=== PATIENT | female | born 1970 | race Caucasian/White ===

== ENCOUNTER 2017-12-07 17:32 | Emergency (ER) | payer OTHER ==
[~2017-12-07] VITALS: Ht 157.5 cm; Wt 75.0 kg
[~2017-12-07 17:32] MED LIST: AMOX500C2 PO; NORCO10T PO
[2017-12-07] MEDS ORDERED: dexamethasone sod phosphate 10mg/ml inj IV STA (17:50)
[2017-12-07] MEDS ORDERED: clindamycin-Cleocin 900mg/D5W 50 ML IV ONE (17:50)
[2017-12-07] MEDS ORDERED: normal saline 1000ML IV soln IVB ONE (17:50)
[2017-12-07] MEDS ORDERED: iohexol 300mg/ml 100ml inj. ONE (17:58)
[2017-12-07] MEDS ORDERED: aspirin 81mg tab.chew PO ONE (18:30)
[2017-12-07] MEDS ORDERED: ondansetron/PF 4mg/2ml inj IV ONE (18:50)
[2017-12-07] MEDS ORDERED: morphine 4 MG/ML inj SYRINge IV ONE (18:50)
[2017-12-07 19:36] LABS: BASOPHILS % (AUTO) 0.1 % (0-1); EOSINOPHILS # (AUTO) 0.1 X10'3 (0-0.9); EOSINOPHILS % (AUTO) 0.7 % (0-6); HEMATOCRIT 42.4 % (35.0-45.0); HEMOGLOBIN 14.5 g/dl (12.0-16.0); LYMPHOCYTES # (AUTO) 1.3 X10'3 (1.1-4.8); LYMPHOCYTES % (AUTO) 9.2 % (21-51); MEAN CORPUSCULAR HEMOGLOBIN 31.3 PG (27.0-31.0); MEAN CORPUSCULAR HGB CONC 34.3 % (33.0-36.5); MEAN CORPUSCULAR VOLUME 91.2 FL (78-98); MEAN PLATELET VOLUME 9.6 FL (7.4-10.4); MONOCYTES # (AUTO) 0.6 X10'3 (0-0.9); MONOCYTES % (AUTO) 4.1 % (2-12); NEUTROPHILS % (AUTO) 85.9 % (42-75); PLATELET COUNT 233 X10'3 (140-440); RED BLOOD COUNT 4.65 X10'6 (4.20-5.60); RED CELL DISTRIBUTION WIDTH 13.7 % (11.5-14.5)
[2017-12-07 19:57] LABS: ALANINE AMINOTRANSFERASE 13 U/L (12-78); ALBUMIN 3.2 G/DL (3.4-5.0); ALBUMIN/GLOBULIN RATIO 0.9 (1.1-1.5); ALKALINE PHOSPHATASE 73 IU/L (46-116); ANION GAP 6 (8-16); ASPARTATE AMINO TRANSFERASE 9 U/L (10-37); BILIRUBIN,TOTAL 0.4 MG/DL (0.1-1.0); BLOOD UREA NITROGEN 8 MG/DL (7-18); CALCIUM 8.4 MG/DL (8.5-10.1); CHLORIDE 103 MMOL/L (99-107); GLUCOSE 111 MG/DL (70-104); MAGNESIUM 1.8 MG/DL (1.5-2.4); POTASSIUM 3.9 MMOL/L (3.5-5.1); SODIUM 136 MMOL/L (135-145); TOTAL CARBON DIOXIDE 26.7 MMOL/L (24-32); TOTAL PROTEIN 6.9 G/DL (6.4-8.2); eGFR 76 ML/MIN
[2017-12-07 20:47] VITALS: BP 152/96
== END 2017-12-07 21:28 | disposition home or self-care (01) ==
LOC: ER 17:33
DX: S02.5XXA Fracture of tooth (traumatic), initial encounter for closed fracture (principal); R06.03 Acute respiratory distress; K04.7 Periapical abscess without sinus; R07.9 Chest pain, unspecified; G43.909 Migraine, unspecified, not intractable, without status migrainosus; E11.9 Type 2 diabetes mellitus without complications; Z79.899 Other long term (current) drug therapy; Z79.2 Long term (current) use of antibiotics; X58.XXXA Exposure to other specified factors, initial encounter; Y93.89 Activity, other specified; Y92.89 Other specified places as the place of occurrence of the external cause; Y99.8 Other external cause status
CPT/HCPCS: 36415; 70491; 80053; 83735; 84484; 85025; 93005; 96365; 96375; 99285; J1100; J2270; J2405; J3490; J7030; Q9967

== ENCOUNTER 2017-12-11 23:42 | Emergency (ER) | payer OTHER ==
[~2017-12-11] VITALS: Ht 157.5 cm; Wt 77.2 kg
[2017-12-12 00:04] VITALS: BP 186/126
== END 2017-12-12 02:06 | disposition left against medical advice (07) ==
LOC: ER 23:43
DX: R21 Rash and other nonspecific skin eruption (principal); Z53.21 Procedure and treatment not carried out due to patient leaving prior to being seen by health care provider

== ENCOUNTER 2019-07-18 16:34 | Inpatient (IN) | payer OTHER ==
[~2019-07-18] VITALS: Ht 154.9 cm; Wt 83.1 kg
[~2019-07-18 16:34] MED LIST changes: -AMOX500C2 PO
[2019-07-18 17:47] LABS: BASOPHILS # (AUTO) 0.1 X10'3 (0-0.2); BASOPHILS % (AUTO) 0.7 % (0-1); EOSINOPHILS # (AUTO) 0.4 X10'3 (0-0.9); EOSINOPHILS % (AUTO) 4.7 % (0-6); HEMOGLOBIN 15.1 g/dl (12.0-16.0); LYMPHOCYTES # (AUTO) 2.6 X10'3 (1.1-4.8); LYMPHOCYTES % (AUTO) 29.3 % (21-51); MEAN CORPUSCULAR HEMOGLOBIN 31.1 PG (27.0-31.0); MEAN CORPUSCULAR HGB CONC 34.3 g/dL (33.0-36.5); MEAN CORPUSCULAR VOLUME 90.6 FL (78-98); MEAN PLATELET VOLUME 9.8 FL (7.4-10.4); MONOCYTES # (AUTO) 0.7 X10'3 (0-0.9); MONOCYTES % (AUTO) 7.3 % (2-12); NEUTROPHILS # (AUTO) 5.2 X10'3 (1.8-7.7); PLATELET COUNT 287 X10'3 (140-440); RED BLOOD COUNT 4.86 X10'6 (4.20-5.60); WHITE BLOOD COUNT 8.9 X10'3 (4.5-11.0)
[2019-07-18 18:06] LABS: ALANINE AMINOTRANSFERASE 27 U/L (12-78); ALBUMIN 3.3 G/DL (3.4-5.0); ALBUMIN/GLOBULIN RATIO 0.9 (1.1-1.5); ALKALINE PHOSPHATASE 83 IU/L (46-116); ANION GAP 5 (8-16); ASPARTATE AMINO TRANSFERASE 19 U/L (10-37); BILIRUBIN,TOTAL 0.1 MG/DL (0.1-1.0); BLOOD UREA NITROGEN 15 MG/DL (7-18); CALCIUM 8.4 MG/DL (8.5-10.1); CHLORIDE 108 MMOL/L (99-107); CREATININE 0.75 MG/DL (0.40-0.90); GLUCOSE 97 MG/DL (70-104); SODIUM 143 MMOL/L (135-145); TOTAL CARBON DIOXIDE 29.9 MMOL/L (24-32); TOTAL PROTEIN 6.9 G/DL (6.4-8.2); eGFR 81 ML/MIN
[2019-07-18] MEDS ORDERED: normal saline 1000ml 1,000 ML IV ONE (18:17)
[2019-07-18] MEDS ORDERED: normal saline 1000ML IV soln IVB ONE (18:20)
[2019-07-18] MEDS ORDERED: nitroGLYCERIN 0.4mg/hour patch TD ONE (18:20)
[2019-07-18] MEDS ORDERED: iohexol 350MG/ML 100ml bottle IV ONE (18:25)
[2019-07-18 18:52] LABS: MAGNESIUM 1.9 MG/DL (1.5-2.4)
--- NOTE | 2019-07-18 19:05 | NUR ---
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
[2019-07-18] MEDS ORDERED: ondansetron/PF 4mg/2ml inj IV ONE (19:20)
[2019-07-18] MEDS ORDERED: NO HOME MEDS (19:49)
[2019-07-18 19:52] LABS: PARTIAL THROMBOPLASTIN TIME 27 SECONDS (22-32)
[2019-07-18] MEDS ORDERED: acetaminophen 325mg tablet PO ONE (21:15)
[2019-07-18] MEDS ORDERED: acetaminophen 325mg tablet PO PRN (21:45)
[2019-07-18] MEDS ORDERED: magnesium hydroxide 30ml (MOM) UD suspension PO PRN (21:45)
[2019-07-18] MEDS ORDERED: morphine 2 MG/ML inj. syringe IV PRN ×2 (21:45)
[2019-07-18] MEDS ORDERED: mag hydrox/Alum hydrox/simeth 30ml oral suspension PO PRN (21:45)
[2019-07-18] MEDS ORDERED: ondansetron/PF 4mg/2ml inj IV PRN (21:45)
[2019-07-18] MEDS ORDERED: metoprolol tartrate 1mg/ml inj IV PRN (21:50)
[2019-07-18] MEDS ORDERED: aminophylline 250mg/10ml inj. IV PRN (21:50)
[2019-07-18] MEDS ORDERED: lisinopril 5mg tablet PO ONE (21:50)
[2019-07-18] MEDS ORDERED: nitroGLYCERIN 0.4mg SUBLingual tab SL PRN (21:50)
[2019-07-18] MEDS ORDERED: regadenoson 0.4mg/5ml syringe IV PRN (21:50)
[2019-07-18] MEDS ORDERED: metoprolol tartrate 50mg tablet PO ONE (21:50)
[2019-07-19 02:00] VITALS: BP 145/84
--- NOTE | 2019-07-19 03:13 | NUR ---
Called Dr. Renee regarding patient's having generalized rash. He ordered Benadryl 25mg PO once. No other orders were given at this time.
[2019-07-19] MEDS ORDERED: diphenhydrAMINE 25mg capsule PO ONE (03:15)
[2019-07-19 06:00] VITALS: BP 131/85
--- NOTE | 2019-07-19 06:05 | NUR ---
Patient in room MED 316. I have received report from DEBORAH Foster and had the opportunity to ask questions and assume patient care.
[2019-07-19 06:19] LABS: BASOPHILS % (AUTO) 0.3 % (0-1); EOSINOPHILS # (AUTO) 0.5 X10'3 (0-0.9); EOSINOPHILS % (AUTO) 3.5 % (0-6); HEMATOCRIT 47.2 % (35.0-45.0); HEMOGLOBIN 15.9 g/dl (12.0-16.0); LYMPHOCYTES # (AUTO) 1.4 X10'3 (1.1-4.8); LYMPHOCYTES % (AUTO) 10.5 % (21-51); MEAN CORPUSCULAR HEMOGLOBIN 30.6 PG (27.0-31.0); MEAN CORPUSCULAR HGB CONC 33.7 g/dL (33.0-36.5); MEAN CORPUSCULAR VOLUME 90.8 FL (78-98); MONOCYTES # (AUTO) 0.5 X10'3 (0-0.9); MONOCYTES % (AUTO) 4.1 % (2-12); NEUTROPHILS # (AUTO) 10.8 X10'3 (1.8-7.7); NEUTROPHILS % (AUTO) 81.6 % (42-75); PLATELET COUNT 275 X10'3 (140-440); WHITE BLOOD COUNT 13.2 X10'3 (4.5-11.0)
[2019-07-19 06:51] LABS: ALANINE AMINOTRANSFERASE 26 U/L (12-78); ALBUMIN/GLOBULIN RATIO 0.9 (1.1-1.5); ALKALINE PHOSPHATASE 69 IU/L (46-116); ANION GAP 9 (8-16); ASPARTATE AMINO TRANSFERASE 17 U/L (10-37); BILIRUBIN,TOTAL 0.3 MG/DL (0.1-1.0); BLOOD UREA NITROGEN 14 MG/DL (7-18); BUN/CREATININE RATIO 16.7 (6.6-38.0); CALCIUM 8.2 MG/DL (8.5-10.1); CHLORIDE 108 MMOL/L (99-107); CREATININE 0.84 MG/DL (0.40-0.90); GLUCOSE 96 MG/DL (70-104); POTASSIUM 3.9 MMOL/L (3.5-5.1); SODIUM 141 MMOL/L (135-145); TOTAL CARBON DIOXIDE 23.7 MMOL/L (24-32); TOTAL PROTEIN 6.3 G/DL (6.4-8.2); eGFR 71 ML/MIN
[2019-07-19 06:58] LABS: CHOL/HDL RATIO 5.4 (0.00-4.99); CHOLESTEROL 207 MG/DL (0-200); HDL CHOLESTEROL 38 MG/DL (35-60); LDL CHOLESTEROL 135 MG/DL (50-100); TRIGLYCERIDES 190 MG/DL (20-135)
[2019-07-19] MEDS: heparin, porcine 5000 units/ml vial SQ SCH ×2 (08:56→21:34)
[2019-07-19] MEDS: aspirin 81mg tablet.DR PO SCH (08:56)
[2019-07-19 11:00] VITALS: BP 119/77
--- NOTE | 2019-07-19 13:49 | NUR ---
Patient in room 316 on [facility] has orders for ECHO, Just FYI. Thank you, Camilla Jordan. ESSENTIA HEALTHE [id number]
[2019-07-19] MEDS ORDERED: methylPREDNISolone sod succ 125mg/2ml vial IV ONE (14:15)
[2019-07-19] MEDS: nicotine 14mg patch - 24hr TD SCH (14:36)
[2019-07-19] MEDS: diphenhydrAMINE 50 mg/ml inj IV PRN (14:37)
[2019-07-19 15:00] VITALS: BP 121/71
--- NOTE | 2019-07-19 17:54 | NUR ---
DR. WILSON PAGED: PAGER ID: [phone] MESSAGE: 316: RAY - C/O CP AND INCREASING HEAVINESS, EKG DONE, CHANGES NOTED, X2 NITRO GIVEN BEATRIZ [id number]
[2019-07-19 18:00] VITALS: BP 135/95
--- NOTE | 2019-07-19 18:00 | NUR ---
Patient in room MED 316. I have received report from BEATRIZ CABRERA and had the opportunity to ask questions and assume patient care.
--- NOTE | 2019-07-19 18:05 | NUR ---
Problems reprioritized. Patient report given, questions answered & plan of care reviewed with DEBORAH Montes De Oca.
[2019-07-19] MEDS ORDERED: mag hydrox/Alum hydrox/simeth 30ml oral suspension PO PRN (18:15)
[2019-07-19 22:00] VITALS: BP 120/64
[2019-07-20] VITALS (19 sets, daily range): BP systolic 127–163; BP diastolic 72–98
[2019-07-20 05:23] LABS: BASOPHILS % (AUTO) 0.2 % (0-1); EOSINOPHILS % (AUTO) 0 % (0-6); HEMATOCRIT 43.2 % (35.0-45.0); HEMOGLOBIN 14.7 g/dl (12.0-16.0); LYMPHOCYTES % (AUTO) 6.7 % (21-51); MONOCYTES # (AUTO) 0.2 X10'3 (0-0.9); MONOCYTES % (AUTO) 1.2 % (2-12); NEUTROPHILS # (AUTO) 13.4 X10'3 (1.8-7.7); NEUTROPHILS % (AUTO) 91.9 % (42-75); PLATELET COUNT 298 X10'3 (140-440); RED BLOOD COUNT 4.75 X10'6 (4.20-5.60); RED CELL DISTRIBUTION WIDTH 13.9 % (11.5-14.5); WHITE BLOOD COUNT 14.6 X10'3 (4.5-11.0)
--- NOTE | 2019-07-20 06:04 | NUR ---
Problems reprioritized. Patient report given, questions answered & plan of care reviewed with FRANDY CABRERA.
[2019-07-20 06:42] LABS: ALANINE AMINOTRANSFERASE 23 U/L (12-78); ALBUMIN 3.1 G/DL (3.4-5.0); ALBUMIN/GLOBULIN RATIO 0.9 (1.1-1.5); ALKALINE PHOSPHATASE 68 IU/L (46-116); ANION GAP 8 (8-16); ASPARTATE AMINO TRANSFERASE 13 U/L (10-37); BILIRUBIN,TOTAL 0.2 MG/DL (0.1-1.0); BLOOD UREA NITROGEN 15 MG/DL (7-18); BUN/CREATININE RATIO 17.4 (6.6-38.0); CALCIUM 8.8 MG/DL (8.5-10.1); CHLORIDE 106 MMOL/L (99-107); CREATININE 0.86 MG/DL (0.40-0.90); GLUCOSE 141 MG/DL (70-104); POTASSIUM 4.1 MMOL/L (3.5-5.1); SODIUM 140 MMOL/L (135-145); TOTAL CARBON DIOXIDE 26.2 MMOL/L (24-32); TOTAL PROTEIN 6.7 G/DL (6.4-8.2); eGFR 70 ML/MIN
[2019-07-20] MEDS ORDERED: predniSONE 20 mg tablet PO SCH (08:00)
[2019-07-20] MEDS: aspirin 81mg tablet.DR PO SCH (08:14)
[2019-07-20] MEDS: heparin, porcine 5000 units/ml vial SQ SCH ×2 (08:17→20:10)
[2019-07-20] MEDS: nicotine 14mg patch - 24hr TD SCH (08:18)
[2019-07-20] MEDS: atorvastatin 20mg tablet PO SCH (08:26)
[2019-07-20] MEDS ORDERED: aminophylline inj. 10 ML IV ONE (09:53)
--- NOTE | 2019-07-20 17:48 | NUR ---
PATIENT C/O MILD PRESSURE ON CHEST ; EKG TAKEN AT THIS TIME. Addendum: 07/20/19 at 1950 by Brynn Fernández RN Amended: Links added.
--- NOTE | 2019-07-20 18:00 | NUR ---
Patient in room MED 316. I have received report from FRANDY CABRERA and had the opportunity to ask questions and assume patient care.
[2019-07-20] MEDS ORDERED: azithromycin 250mg tablet PO ONE (18:35)
[2019-07-20] MEDS: metoprolol tartrate 12.5mg (1/2 tablet) PO SCH (20:08)
[2019-07-20] MEDS: diphenhydrAMINE 50 mg/ml inj IV PRN (20:10)
[2019-07-20] MEDS ORDERED: diphenhydrAMINE 50 mg/ml inj IV ONE (23:15)
[2019-07-21] VITALS (14 sets, daily range): BP systolic 120–150; BP diastolic 62–92
--- NOTE | 2019-07-21 06:00 | NUR ---
Problems reprioritized. Patient report given, questions answered & plan of care reviewed with CHEVY CABRERA. Addendum: 07/21/19 at 0626 by Pearl Hagan RN Problems reprioritized. Patient report given, questions answered & plan of care reviewed with BEATRIZ CABRERA.
--- NOTE | 2019-07-21 06:01 | NUR ---
Patient on [facility]E in 316, Hard stick, possible heart cath needs 18 G to the left arm. Thank you, Wanda Jordan RN ACCE [id number]
--- NOTE | 2019-07-21 06:02 | NUR ---
Patient in room MED 316. I have received report from DEBORAH Kang and had the opportunity to ask questions and assume patient care.
[2019-07-21 06:04] LABS: BASOPHILS # (AUTO) 0.1 X10'3 (0-0.2); EOSINOPHILS # (AUTO) 0.3 X10'3 (0-0.9); EOSINOPHILS % (AUTO) 1.9 % (0-6); HEMATOCRIT 44.2 % (35.0-45.0); HEMOGLOBIN 15.2 g/dl (12.0-16.0); LYMPHOCYTES # (AUTO) 3.2 X10'3 (1.1-4.8); LYMPHOCYTES % (AUTO) 24.5 % (21-51); MEAN CORPUSCULAR HEMOGLOBIN 31.4 PG (27.0-31.0); MEAN CORPUSCULAR HGB CONC 34.5 g/dL (33.0-36.5); MEAN CORPUSCULAR VOLUME 90.9 FL (78-98); MEAN PLATELET VOLUME 10.1 FL (7.4-10.4); MONOCYTES # (AUTO) 0.6 X10'3 (0-0.9); MONOCYTES % (AUTO) 4.6 % (2-12); NEUTROPHILS # (AUTO) 8.9 X10'3 (1.8-7.7); PLATELET COUNT 271 X10'3 (140-440); RED BLOOD COUNT 4.86 X10'6 (4.20-5.60); RED CELL DISTRIBUTION WIDTH 13.9 % (11.5-14.5); WHITE BLOOD COUNT 13.1 X10'3 (4.5-11.0)
[2019-07-21 06:28] LABS: ALANINE AMINOTRANSFERASE 24 U/L (12-78); ALBUMIN 3.1 G/DL (3.4-5.0); ALBUMIN/GLOBULIN RATIO 0.9 (1.1-1.5); ALKALINE PHOSPHATASE 64 IU/L (46-116); ANION GAP 7 (8-16); ASPARTATE AMINO TRANSFERASE 19 U/L (10-37); BILIRUBIN,TOTAL 0.3 MG/DL (0.1-1.0); BLOOD UREA NITROGEN 15 MG/DL (7-18); BUN/CREATININE RATIO 16.5 (6.6-38.0); CALCIUM 8.5 MG/DL (8.5-10.1); CHLORIDE 107 MMOL/L (99-107); CREATININE 0.91 MG/DL (0.40-0.90); GLUCOSE 93 MG/DL (70-104); POTASSIUM 3.9 MMOL/L (3.5-5.1); SODIUM 141 MMOL/L (135-145); TOTAL CARBON DIOXIDE 26.7 MMOL/L (24-32); TOTAL PROTEIN 6.5 G/DL (6.4-8.2); eGFR 65 ML/MIN
[2019-07-21] MEDS: atorvastatin 20mg tablet PO SCH (07:41)
[2019-07-21] MEDS: metoprolol tartrate 12.5mg (1/2 tablet) PO SCH ×2 (07:42→20:26)
[2019-07-21] MEDS: aspirin 81mg tablet.DR PO SCH (07:43)
[2019-07-21] MEDS: azithromycin 250mg tablet PO SCH (07:43)
[2019-07-21] MEDS: heparin, porcine 5000 units/ml vial SQ SCH (07:44)
[2019-07-21] MEDS: nicotine 14mg patch - 24hr TD SCH (08:00)
[2019-07-21] MEDS ORDERED: FLU VACC QS2019-20 36MOS UP/PF 60 MCG/0.5 ML SYRINGE IMVAC ONE (13:45)
[2019-07-21] MEDS ORDERED: pneumococcal 23-VAL P-sac vacc 25 mcg/0.5ml vial IMVAC ONE (13:45)
[2019-07-21] MEDS ORDERED: LIDOcaine/PRILOcaine 5gm cream TP ONE (15:00)
[2019-07-21] MEDS ORDERED: LIDOcaine 1% (10mg/ml)w/preservative injection 20ml MDV ONE (16:32)
[2019-07-21] MEDS ORDERED: iohexol 350MG/ML 100ml bottle IV ONE (16:32)
[2019-07-21] MEDS ORDERED: fentaNYL/PF 50MCG/1 ML 2ML syringe ONE (16:32)
[2019-07-21] MEDS ORDERED: midazolam 2 mg/2 ml injection ONE ×2 (16:32→16:54)
--- NOTE | 2019-07-21 16:43 | NUR ---
Patient verbalizes that she will like her son, Segundo Sumner and daughter, Dalia Sumner to make medical decisions for her in the event that she is not able to make medical decisions for herself. Witnessed by Divya FRANK and I. Provided an Advance Directive for the patient to fill out.
--- NOTE | 2019-07-21 17:20 | NUR ---
Received report from DEBORAH Yun from lab engineer. Patient received no intervention, cath is negative, she received 4 of versed and 100 of Fentanyl. Manual hold of right femoral approach, and we are to keep patient flat x2 hours.
--- NOTE | 2019-07-21 17:35 | NUR ---
Patient arrived back from the label paster on a gurney. I assisted in transferring patient back to the bed. Patient is alert and oriented x4, blood pressures stable, right groin has no bruising, dressing has no drainage and no hematoma present. Right pedal pulse is present and strong to palpation.
[2019-07-21] MEDS ORDERED: HYDROcodone/acetaminophen 10/325mg tab PO PRN (18:00)
[2019-07-21] MEDS ORDERED: OXAZEpam 15mg capsule PO PRN (18:00)
[2019-07-21] MEDS ORDERED: ondansetron/PF 4mg/2ml inj IV PRN (18:00)
[2019-07-21] MEDS ORDERED: proCHLORperazine 10 MG/2 ml inj IV PRN (18:00)
[2019-07-21] MEDS ORDERED: HYDROcodone/acetaminophen 5mg/325mg tablet PO PRN (18:00)
[2019-07-21] MEDS: lactobacillus rhamnosus 10,000 MMU CELLS/CAPSULE PO SCH (20:24)
[2019-07-22] MEDS: diphenhydrAMINE 50 mg/ml inj IV PRN ×2 (01:13→08:54)
[2019-07-22 02:00] VITALS: BP 123/76
--- NOTE | 2019-07-22 02:45 | NUR ---
PAGER ID: [phone] MESSAGE: Yvonne Vigil, 49F, Rm 316 ACCE, S/p [place] Cath without stent. complaining of generalized rash between 1am-2am every night. She received 25mg Benadryl IV about 80 minutes. Now itching again. no other meds for rash. Cristian CABRERA ACCE Unit - [id number] Addendum: 07/22/19 at 0258 by Cristian Swartz RN Dr. Leong called back and ordered Benadryl 25 mg IV once. No other orders were given at this time.
[2019-07-22] MEDS ORDERED: diphenhydrAMINE 50 mg/ml inj IV ONE (02:55)
[2019-07-22 06:00] VITALS: BP 158/92
[2019-07-22 06:24] LABS: BASOPHILS # (AUTO) 0.1 X10'3 (0-0.2); BASOPHILS % (AUTO) 0.4 % (0-1); EOSINOPHILS # (AUTO) 0.6 X10'3 (0-0.9); EOSINOPHILS % (AUTO) 4.5 % (0-6); HEMATOCRIT 46.2 % (35.0-45.0); HEMOGLOBIN 15.7 g/dl (12.0-16.0); LYMPHOCYTES % (AUTO) 15.6 % (21-51); MEAN CORPUSCULAR HEMOGLOBIN 30.6 PG (27.0-31.0); MEAN CORPUSCULAR HGB CONC 33.9 g/dL (33.0-36.5); MEAN CORPUSCULAR VOLUME 90.2 FL (78-98); MEAN PLATELET VOLUME 9.9 FL (7.4-10.4); MONOCYTES # (AUTO) 0.8 X10'3 (0-0.9); MONOCYTES % (AUTO) 6.3 % (2-12); NEUTROPHILS # (AUTO) 9.2 X10'3 (1.8-7.7); NEUTROPHILS % (AUTO) 73.2 % (42-75); PLATELET COUNT 292 X10'3 (140-440); RED BLOOD COUNT 5.12 X10'6 (4.20-5.60); RED CELL DISTRIBUTION WIDTH 13.8 % (11.5-14.5); WHITE BLOOD COUNT 12.6 X10'3 (4.5-11.0)
[2019-07-22 06:39] LABS: ALANINE AMINOTRANSFERASE 22 U/L (12-78); ALBUMIN 3.1 G/DL (3.4-5.0); ALBUMIN/GLOBULIN RATIO 0.9 (1.1-1.5); ALKALINE PHOSPHATASE 64 IU/L (46-116); ANION GAP 11 (8-16); ASPARTATE AMINO TRANSFERASE 11 U/L (10-37); BILIRUBIN,TOTAL 0.3 MG/DL (0.1-1.0); BLOOD UREA NITROGEN 18 MG/DL (7-18); CALCIUM 8.5 MG/DL (8.5-10.1); CHLORIDE 104 MMOL/L (99-107); GLUCOSE 98 MG/DL (70-104); POTASSIUM 4.1 MMOL/L (3.5-5.1); SODIUM 140 MMOL/L (135-145); TOTAL CARBON DIOXIDE 24.8 MMOL/L (24-32); TOTAL PROTEIN 6.5 G/DL (6.4-8.2); eGFR 66 ML/MIN
[2019-07-22] MEDS: lactobacillus rhamnosus 10,000 MMU CELLS/CAPSULE PO SCH (07:19)
[2019-07-22] MEDS: aspirin 81mg tablet.DR PO SCH (07:19)
[2019-07-22] MEDS: azithromycin 250mg tablet PO SCH (07:19)
[2019-07-22] MEDS: atorvastatin 20mg tablet PO SCH (07:19)
[2019-07-22 07:20] VITALS: BP_SYST 158
[2019-07-22] MEDS: metoprolol tartrate 12.5mg (1/2 tablet) PO SCH (07:20)
[2019-07-22] MEDS: nicotine 14mg patch - 24hr TD SCH (07:20)
[2019-07-22] MEDS ORDERED: METO25TA6 PO (09:24)
[2019-07-22] MEDS ORDERED: ATOR20TA66 PO (09:24)
[2019-07-22] MEDS ORDERED: AZI25OT PO (09:24)
[2019-07-22] MEDS ORDERED: ASPI-1071 PO (09:24)
[2019-07-22] MEDS ORDERED: NICO-631 TD (09:24)
[2019-07-22] MEDS ORDERED: ATOR40TA PO (09:28)
--- NOTE | 2019-07-22 10:00 | NUR ---
PROVIDED PATIENT WITH DISCHARGE INSTRUCTIONS WELL NEW PRESCRIPTION INFORMATION AND INSTRUCTIONS. PATIENT VERBALIZES UNDERSTANDING OF ALL NEW MEDICATIONS AND RECOMMENDATION TO FOLLOW UP WITH A PRIMARY CARE DOCTOR. IV REMOVED, CATHETER INTACT, WITH MINIMAL BLEEDING CLEAN GAUZE APPLIED AND SECURED WITH COBAN. PATIENT'S SON IS PRESENT FOR ALL INSTRUCTIONS AND WILL TAKE HER HOME VIA PRIVATE VEHICLE.
== END 2019-07-22 10:18 | disposition home or self-care (01) | DRG 287 ==
LOC: ER 16:35 → ED HOLD 22:01 → MED 3N 23:10
PROVIDERS: ADMIT Internal Medicine; ATTEND Family Medicine
PROC: B32T1ZZ Computerized Tomography (CT Scan) of Left Pulmonary Artery using Low Osmolar Contrast (ICD-10-PCS; 2019-07-18)
PROC: B32S1ZZ Computerized Tomography (CT Scan) of Right Pulmonary Artery using Low Osmolar Contrast (ICD-10-PCS; 2019-07-18)
PROC: 4A02XM4 Measurement of Cardiac Total Activity, External Approach (ICD-10-PCS; 2019-07-20)
PROC: 3E033HZ Introduction of Radioactive Substance into Peripheral Vein, Percutaneous Approach (ICD-10-PCS; 2019-07-20)
PROC: 4A023N7 Measurement of Cardiac Sampling and Pressure, Left Heart, Percutaneous Approach (ICD-10-PCS; principal; 2019-07-21)
PROC: B2111ZZ Fluoroscopy of Multiple Coronary Arteries using Low Osmolar Contrast (ICD-10-PCS; 2019-07-21)
PROC: B2151ZZ Fluoroscopy of Left Heart using Low Osmolar Contrast (ICD-10-PCS; 2019-07-21)
DX: I25.119 Atherosclerotic heart disease of native coronary artery with unspecified angina pectoris (principal); E11.9 Type 2 diabetes mellitus without complications; E78.5 Hyperlipidemia, unspecified; F17.200 Nicotine dependence, unspecified, uncomplicated; G43.909 Migraine, unspecified, not intractable, without status migrainosus; I10 Essential (primary) hypertension; J20.9 Acute bronchitis, unspecified; K59.00 Constipation, unspecified; Z82.49 Family history of ischemic heart disease and other diseases of the circulatory system
CPT/HCPCS: 36415; 71045; 71275; 76937; 78452; 80053; 80061; 83036; 83735; 83880; 84484; 85025; 85610; 85730; 87081; 87502; 87503; 93005; 93017; 93306; 93458; 96361; 96374; 99152; 99285; A4620; A6258; A9500; C1769; G0378; J0280; J1200; J1644; J2001; J2250; J2405; J2785; J2930; J3010; Q0163; Q2037; Q9967

== ENCOUNTER 2019-12-01 19:27 | Emergency (ER) | payer OTHER ==
[~2019-12-01] VITALS: Ht 157.5 cm; Wt 75.0 kg
[~2019-12-01 19:27] MED LIST changes: +ASPI-1071 PO; +AZI25OT PO; +METO25TA6 PO; +NICO-631 TD; -NORCO10T PO
[2019-12-01] MEDS ORDERED: normal saline 1000ML IV soln IV ONE (20:00)
[2019-12-01] MEDS ORDERED: ondansetron/PF 4mg/2ml inj IV ONE (20:10)
[2019-12-01] MEDS ORDERED: morphine 4 MG/ML inj SYRINge IV PRN (20:10)
[2019-12-01 20:14] LABS: BASOPHILS # (AUTO) 0.1 X10'3 (0-0.2); BASOPHILS % (AUTO) 1.1 % (0-1); EOSINOPHILS # (AUTO) 0.8 X10'3 (0-0.9); EOSINOPHILS % (AUTO) 6.2 % (0-6); HEMATOCRIT 43.2 % (35.0-45.0); HEMOGLOBIN 14.5 g/dl (12.0-16.0); LYMPHOCYTES # (AUTO) 3.3 X10'3 (1.1-4.8); LYMPHOCYTES % (AUTO) 24.1 % (21-51); MEAN CORPUSCULAR HGB CONC 33.6 g/dL (33.0-36.5); MEAN CORPUSCULAR VOLUME 92.4 FL (78-98); MEAN PLATELET VOLUME 9.8 FL (7.4-10.4); MONOCYTES # (AUTO) 1.1 X10'3 (0-0.9); MONOCYTES % (AUTO) 8.2 % (2-12); NEUTROPHILS # (AUTO) 8.2 X10'3 (1.8-7.7); NEUTROPHILS % (AUTO) 60.4 % (42-75); PLATELET COUNT 263 X10'3 (140-440); RED BLOOD COUNT 4.68 X10'6 (4.20-5.60); RED CELL DISTRIBUTION WIDTH 14.5 % (11.5-14.5); WHITE BLOOD COUNT 13.6 X10'3 (4.5-11.0)
[2019-12-01 20:28] LABS: ALANINE AMINOTRANSFERASE 22 U/L (12-78); ALBUMIN 2.6 G/DL (3.4-5.0); ALBUMIN/GLOBULIN RATIO 0.6 (1.1-1.5); ALKALINE PHOSPHATASE 80 IU/L (46-116); ANION GAP 9 (8-16); ASPARTATE AMINO TRANSFERASE 23 U/L (10-37); BILIRUBIN,TOTAL 0.4 MG/DL (0.1-1.0); BLOOD UREA NITROGEN 37 MG/DL (7-18); BUN/CREATININE RATIO 15.5 (6.6-38.0); CALCIUM 8.9 MG/DL (8.5-10.1); CHLORIDE 102 MMOL/L (99-107); CREATININE 2.39 MG/DL (0.40-0.90); GLUCOSE 119 MG/DL (70-104); POTASSIUM 3.4 MMOL/L (3.5-5.1); SODIUM 139 MMOL/L (135-145); TOTAL CARBON DIOXIDE 28.2 MMOL/L (24-32); TOTAL PROTEIN 7.1 G/DL (6.4-8.2); eGFR 21 ML/MIN
[2019-12-01 21:48] LABS: ETHANOL < 0.010 GM/DL (0.0-0.010)
--- NOTE | 2019-12-01 22:25 | NUR ---
PATIENT UNABLE TO PROVIDE URINE SAMPLE, MD AWARE GIVEN ORAL FLUIDS WELL IV FLUIDS PER ORDER
[2019-12-01 23:00] VITALS: BP 116/82
== END 2019-12-01 22:50 | disposition left against medical advice (07) ==
LOC: ER 19:28
DX: R10.30 Lower abdominal pain, unspecified (principal); D72.829 Elevated white blood cell count, unspecified; G43.909 Migraine, unspecified, not intractable, without status migrainosus; M54.5 Low back pain; I10 Essential (primary) hypertension; E11.9 Type 2 diabetes mellitus without complications; Z79.2 Long term (current) use of antibiotics; Z88.8 Allergy status to other drugs, medicaments and biological substances; Z79.899 Other long term (current) drug therapy
CPT/HCPCS: 36415; 71045; 74176; 80053; 80320; 83605; 84145; 84484; 85025; 87040; 93005; 96374; 99285; J2405; J7030

== ENCOUNTER 2021-05-16 14:25 | Emergency (ER) | payer OTHER ==
[~2021-05-16] VITALS: Ht 160 cm; Wt 75.0 kg
[~2021-05-16 14:25] MED LIST changes: +LOP25T PO; -METO25TA6 PO
[2021-05-16] MEDS ORDERED: cloNIDine 0.1 mg tablet PO ONE (15:50)
[2021-05-16] MEDS ORDERED: normal saline 1000ml 1,000 ML IV ONE (15:50)
[2021-05-16] MEDS ORDERED: ketorolac tromethamine 15mg/ml inj. IV ONE (15:50)
[2021-05-16] MEDS ORDERED: ondansetron/PF 4mg/2ml inj IV ONE (15:50)
[2021-05-16] MEDS ORDERED: ISOS30TA84 PO ×2 (16:01→16:03)
[2021-05-16 17:08] VITALS: BP 167/113
== END 2021-05-16 17:09 | disposition home or self-care (01) ==
LOC: ER 14:25
DX: G43.909 Migraine, unspecified, not intractable, without status migrainosus (principal); I10 Essential (primary) hypertension; I25.2 Old myocardial infarction; E11.9 Type 2 diabetes mellitus without complications; G89.29 Other chronic pain; F12.90 Cannabis use, unspecified, uncomplicated; F15.90 Other stimulant use, unspecified, uncomplicated; F14.90 Cocaine use, unspecified, uncomplicated; Z98.890 Other specified postprocedural states; Z88.8 Allergy status to other drugs, medicaments and biological substances; Z79.82 Long term (current) use of aspirin; Z79.2 Long term (current) use of antibiotics; Z79.899 Other long term (current) drug therapy
CPT/HCPCS: 96361; 96374; 96375; 99284; J1885; J2405; J7030

== ENCOUNTER 2022-09-25 10:39 | Emergency (ER) | payer OTHER ==
[~2022-09-25] VITALS: Ht 157.5 cm; Wt 72.7 kg
[~2022-09-25 10:39] MED LIST changes: +ISOS30TA84 PO
[2022-09-25 11:05] LABS: BASOPHILS # (AUTO) 0.1 X10'3 (0-0.2); BASOPHILS % (AUTO) 0.9 % (0-1); EOSINOPHILS # (AUTO) 0.3 X10'3 (0-0.9); EOSINOPHILS % (AUTO) 3.4 % (0-6); HEMATOCRIT 34.3 % (35.0-45.0); HEMOGLOBIN 11.7 g/dl (12.0-16.0); LYMPHOCYTES # (AUTO) 2.1 X10'3 (1.1-4.8); LYMPHOCYTES % (AUTO) 27.9 % (21-51); MEAN CORPUSCULAR HEMOGLOBIN 31.6 PG (27.0-31.0); MEAN CORPUSCULAR HGB CONC 34.1 g/dL (33.0-36.5); MEAN CORPUSCULAR VOLUME 92.7 FL (78-98); MEAN PLATELET VOLUME 8.8 FL (7.4-10.4); MONOCYTES # (AUTO) 0.7 X10'3 (0-0.9); MONOCYTES % (AUTO) 9.9 % (2-12); NEUTROPHILS # (AUTO) 4.3 X10'3 (1.8-7.7); NEUTROPHILS % (AUTO) 57.9 % (42-75); PLATELET COUNT 286 X10'3 (140-440); RED CELL DISTRIBUTION WIDTH 14.1 % (11.5-14.5); WHITE BLOOD COUNT 7.5 X10'3 (4.5-11.0)
[2022-09-25] MEDS ORDERED: normal saline 1000ml 1,000 ML IVB ONE (11:05)
[2022-09-25 11:19] LABS: ALANINE AMINOTRANSFERASE 19 U/L (12-78); ALBUMIN/GLOBULIN RATIO 0.9 (1.1-1.5); ALKALINE PHOSPHATASE 70 IU/L (46-116); ANION GAP 9 (8-16); ASPARTATE AMINO TRANSFERASE 12 U/L (10-37); BILIRUBIN,TOTAL 0.2 MG/DL (0.1-1.0); BLOOD UREA NITROGEN 17 MG/DL (7-18); BUN/CREATININE RATIO 22.1 (6.6-38.0); CALCIUM 8.6 MG/DL (8.5-10.1); CHLORIDE 103 MMOL/L (99-107); CREATININE 0.77 MG/DL (0.40-0.90); GLUCOSE 97 MG/DL (70-104); POTASSIUM 3.6 MMOL/L (3.5-5.1); SODIUM 138 MMOL/L (135-145); TOTAL CARBON DIOXIDE 26.1 MMOL/L (24-32); TOTAL PROTEIN 6.5 G/DL (6.4-8.2); eGFR 78 ML/MIN
[2022-09-25] MEDS ORDERED: normal saline 1000ML IV soln IV ONE (11:20)
[2022-09-25] MEDS ORDERED: ondansetron/PF 4mg/2ml inj IV ONE (12:20)
[2022-09-25] MEDS ORDERED: ketorolac trometh inj. 60 MG/2 ML VIAL IM ONE (12:20)
[2022-09-25] MEDS ORDERED: ketorolac tromethamine 15mg/ml inj. IV ONE (12:30)
[2022-09-25] MEDS ORDERED: iohexol 350MG/ML 100ml bottle IV ONE (12:45)
[2022-09-25] MEDS ORDERED: HYDROmorphone 1 mg/ml syringe IV ONE (13:35)
--- NOTE | 2022-09-25 13:38 | NUR ---
Patient complaining of right leg pain described as pinching nerve. Dr. Ramirez notified
[2022-09-25] MEDS ORDERED: HYDROmorphone inj. 0.5 MG/0.5 ML DISP.SYRIN IV ONE ×2 (13:45→17:05)
[2022-09-25 14:05] LABS: C-REACTIVE PROTEIN 0.84 MG/DL (0.0-0.5)
[2022-09-25] MEDS ORDERED: LORazepam 2 mg/ml vial IV ONE ×4 (14:05→18:10)
[2022-09-25] MEDS ORDERED: CYCL-1 PO (19:34)
[2022-09-25] MEDS ORDERED: NAPR-56 PO (19:34)
[2022-09-25 20:14] VITALS: BP 124/78
== END 2022-09-25 20:16 | disposition home or self-care (01) ==
LOC: ER 10:39
DX: I95.89 Other hypotension (principal); R07.89 Other chest pain; M54.10 Radiculopathy, site unspecified; R06.02 Shortness of breath; G43.909 Migraine, unspecified, not intractable, without status migrainosus; I10 Essential (primary) hypertension; E11.9 Type 2 diabetes mellitus without complications; G89.29 Other chronic pain; M54.50 Low back pain, unspecified; F15.20 Other stimulant dependence, uncomplicated; F12.90 Cannabis use, unspecified, uncomplicated; Z88.8 Allergy status to other drugs, medicaments and biological substances
CPT/HCPCS: 36415; 71045; 71275; 72158; 80053; 83605; 83880; 84145; 84484; 85025; 85651; 86140; 87040; 93005; 96361; 96374; 96375; 96376; 99285; J1170; J1885; J2060; J2405; J3490; J7030; Q9967

== ENCOUNTER 2024-08-26 22:03 | Emergency (ER) | payer OTHER ==
[~2024-08-26] VITALS: Ht 157.5 cm; Wt 76.0 kg
[~2024-08-26 22:03] MED LIST changes: +CYCL-1 PO
[2024-08-26 22:09] VITALS: TEMP 98.6
[2024-08-26 22:24] LABS: BASOPHILS # (AUTO) 0.1 X10'3 (0-0.2); BASOPHILS % (AUTO) 0.8 % (0-1); EOSINOPHILS # (AUTO) 0.3 X10'3 (0-0.9); EOSINOPHILS % (AUTO) 2.8 % (0-6); HEMATOCRIT 45.7 % (35.0-45.0); HEMOGLOBIN 15.6 g/dl (12.0-16.0); LYMPHOCYTES # (AUTO) 2.8 X10'3 (1.1-4.8); LYMPHOCYTES % (AUTO) 30.9 % (21-51); MEAN CORPUSCULAR HGB CONC 34.1 g/dL (33.0-36.5); MEAN CORPUSCULAR VOLUME 93.9 FL (78-98); MONOCYTES # (AUTO) 0.6 X10'3 (0-0.9); MONOCYTES % (AUTO) 6.3 % (2-12); NEUTROPHILS # (AUTO) 5.3 X10'3 (1.8-7.7); NEUTROPHILS % (AUTO) 59.2 % (42-75); PLATELET COUNT 265 X10'3 (140-440); RED BLOOD COUNT 4.87 X10'6 (4.20-5.60); RED CELL DISTRIBUTION WIDTH 14.2 % (11.5-14.5); WHITE BLOOD COUNT 8.9 X10'3 (4.5-11.0)
[2024-08-26 22:37] LABS: ALANINE AMINOTRANSFERASE 19 U/L (12-78); ALBUMIN 3.4 G/DL (3.4-5.0); ALBUMIN/GLOBULIN RATIO 0.9 (1.1-1.5); ALKALINE PHOSPHATASE 83 IU/L (46-116); ANION GAP 9 (8-16); ASPARTATE AMINO TRANSFERASE 14 U/L (10-37); BILIRUBIN,TOTAL 0.2 MG/DL (0.1-1.0); BLOOD UREA NITROGEN 14 MG/DL (7-18); BUN/CREATININE RATIO 16.3 (10.0-20.0); CALCIUM 9.1 MG/DL (8.5-10.1); CHLORIDE 102 MMOL/L (99-107); CREATININE 0.86 MG/DL (0.40-0.90); GLUCOSE 105 MG/DL (70-104); POTASSIUM 3.7 MMOL/L (3.5-5.1); SODIUM 138 MMOL/L (135-145); TOTAL CARBON DIOXIDE 26.7 MMOL/L (24-32); TOTAL PROTEIN 7.1 G/DL (6.4-8.2); eCRCL 58 ML/MIN; eGFR 68 ML/MIN
[2024-08-26 22:46] LABS: PRO BRAIN NATRIURETIC PEPTIDE 162 PG/ML (0-125)
[2024-08-26 23:15] VITALS: BP 125/82; PULSE 83; RESP 20; O2SAT 97
[2024-08-26] MEDS ORDERED: ISOS30TA84 PO (23:35)
[2024-08-26] MEDS ORDERED: LISI1TAB53 PO (23:38)
== END 2024-08-27 00:03 | disposition home or self-care (01) ==
LOC: ER 22:05
DX: I10 Essential (primary) hypertension (principal); E11.9 Type 2 diabetes mellitus without complications; I25.2 Old myocardial infarction; G89.29 Other chronic pain; M54.9 Dorsalgia, unspecified; F12.90 Cannabis use, unspecified, uncomplicated; F15.90 Other stimulant use, unspecified, uncomplicated; G43.909 Migraine, unspecified, not intractable, without status migrainosus; Z79.899 Other long term (current) drug therapy; Z88.5 Allergy status to narcotic agent
CPT/HCPCS: 36415; 71045; 80053; 83880; 84484; 85025; 93005; 99285